=== PATIENT | female | born 1980 | race Caucasian/White ===

== ENCOUNTER 2017-05-24 14:24 | Emergency (ER) | payer SELFPAY ==
[~2017-05-24] VITALS: Ht 152.4 cm; Wt 49.9 kg
[2017-05-24 14:37] VITALS: Ht 152.4 cm; Wt 49.9 kg
[2017-05-24 17:19] VITALS: BP 101/59
== END 2017-05-24 17:19 | disposition left against medical advice (07) ==
LOC: ED 14:24
DX: O26.893 Other specified pregnancy related conditions, third trimester (principal); R10.9 Unspecified abdominal pain; Z3A.34 34 weeks gestation of pregnancy